=== PATIENT | male | born 1955 | race Caucasian/White ===

== ENCOUNTER 2019-06-16 19:37 | Observation (INO) | payer MEDICARE, SELFPAY ==
[2019-06-16] VITALS (10 sets, daily range): BP systolic 107–151; BP diastolic 77–93; PULSE 68–77; RESP 14–20; TEMP 36.6–36.7; O2SAT 98–100; BMI 26.4
--- NOTE | ~2019-06-16 | XR_ITS ---
EXAMINATION: XR chest 1V portable DATE: 06/16/2019 20:07 INDICATION: Syncope TECHNIQUE: AP view of the chest was obtained. COMPARISON: None FINDINGS: Small lung volumes. Calcified right apical pleural-parenchymal scarring. A few small scattered calcif ied pulmonary nodules consistent with old granulomatous disease. No other airspace opacities, pulmona ry edema, pleural effusion or pneumothorax. The cardiomediastinal silhouette is normal. Visualized dallin gia and soft tissues are unremarkable. IMPRESSION: 1. No acute cardiopulmonary disease. Reviewed, dictated and finalized at location A. NT ACQUISITION RELATIONSHIP MANAGER
--- NOTE | ~2019-06-16 | CT_ITS ---
EXAMINATION: CT brain wo con DATE: 06/16/2019 20:24 INDICATION: Syncope TECHNIQUE: Computed tomography (CT) of the head was performed without intravenous contrast. Sagittal and coronal reconstructions were performed. The mA was adjusted according to patient size. Iterative reconstruction technique was employed. The dose-length product was 605.33 mGy-cm. COMPARISON: None FINDINGS: No acute intracranial hemorrhage, acute infarction or abnormal extra axial fluid collection. There is minimal scattered white matter hypoattenuation consistent with chronic small vessel ischemic disease . Symmetric mildly increased prominence of the sulci consistent with minimal age-appropriate diffuse cerebral volume loss. Ventricles are normal and symmetric. No mass/mass effect. The orbits, paranasa l sinuses and mastoid air cells are normal. Intracranial calcified cerebral atherosclerosis is noted. IMPRESSION: 1. Normal aging brain. No acute intracranial process. Reviewed, dictated and finalized at location A. ET ENGINEER
--- NOTE | ~2019-06-16 | US_ITS ---
EXAMINATION: US carotid duplex BI DATE: 06/17/2019 09:34 INDICATION: Syncope. TECHNIQUE: Grayscale, color Doppler, and pulsed Doppler images of the cervical carotid arteries were obtained. The degree of vessel stenosis is placed in one of the following categories: normal, <50%, 5 0-69%, >=70% but less than near-occlusion, near-occlusion, or total occlusion. Note that percent sten osis relative to normal distal artery lumen diameter is indirectly measured from velocity measurement s as described by Gilson, et al. Radiology 2003; 229:340-346. COMPARISON: None. FINDINGS: RIGHT: The right common carotid artery (CCA) peak systolic velocity (PSV) is 73 cm/s. The right internal car otid artery (ICA) PSV is 128 cm/s. The right ICA end-diastolic velocity (EDV) is 49 cm/s. The right I CA/CCA PSV ratio is 1.8. Grayscale and color Doppler images yield an estimate of <50% diameter reduct ion from plaque in the ICA. There is antegrade flow in the right vertebral artery. LEFT: The left CCA PSV is 83 cm/s. The left ICA PSV is 90 cm/s. The left ICA EDV is 40 cm/s. The left ICA/C CA PSV ratio is 1.1. Grayscale and color Doppler images yield an estimate of <50% diameter reduction from plaque in the ICA. There is antegrade flow in the left vertebral artery. IMPRESSION: 1. <50% stenosis in the right internal carotid artery. 2. <50% stenosis in the left internal carotid artery. Reviewed, dictated and finalized at location A. RACTOR BROOMCORN THRESHING
--- NOTE | 2019-06-16 19:40 | ECG_ITS ---
Measurements Intervals [place] Rate: 70 P: 44 SD: 153 QRS: 2 QRSD: 99 T: 52 QT: 423 QTc: 458 Interpretive Statements SINUS RHYTHM VENTRICULAR PREMATURE COMPLEXES INCOMPLETE RIGHT BUNDLE BRANCH BLOCK BASELINE WANDER- AVL, AVF BORDERLINE ECG Electronically Signed On 06-17-2019 7:21:40 RESPIRATORY SCIENTIST by Dante Gorman D.O.
--- NOTE | 2019-06-16 19:40 | ED.SYNCOPE ---
HPI - Syncope General Chief Complaint: Syncope Stated Complaint: syncope Time Seen by Provider: 06/16/19 19:38 Source: patient, family (pt's ), EMS and RN notes reviewed Mode of arrival: EMS Limitations: no limitations History of Present Illness HPI narrative: Pt is a 63 y/o male who presents to the ED via EMS with c/o syncopal episode happening this evening. He notes that he had drank several beers throughout this afternoon. Pt states that he was eating chili this evening when he suddenly became lightheaded and diaphoretic and passed out. His notes that his head was slumped forward during the episode, and states that he was unconscious for roughly 7 minutes. She denies him having any convulsions or other seizure-like activity. EMS reports the pt having urinary incontinence during the episode. Pt denies any head injury, CP, SOB, or other symptoms. MD complaint: loss of consciousness Duration of episode: 7 -: minutes(s) Prodromal symptoms: lightheaded and diaphoresis Witnessed: Yes - by Other (pt's ) Context: other (while eating) Injuries sustained associated with event: none Current symptoms: other (urinary incontinence (per EMS)) Related Data Home Medications Medication Instructions Recorded Confirmed No Home Medications 06/16/19 06/16/19 Allergies Allergy/AdvReac Type Severity Reaction Status Date / Time No Known Allergies Allergy Verified 06/16/19 19:49 Review of Systems Review of Systems: All systems reviewed & are unremarkable except as noted in HPI and below Cardiovascular: Cardiovascular: Denies chest pain and Reports diaphoresis (resolved) Respiratory: Respiratory: Denies dyspnea Genitourinary: Genitourinary: Reports urinary incontinence (per EMS) Neurologic: Reports syncope, Denies seizure-like activity and Reports other (Reports: lightheadedness (resolved). Denies: head injury) [facility] Past Medical History Medical History Inguinal hernia Surgical History Surgical History Hx of appendectomy Family History Family History (Updated 06/16/19 @ 22:32 by Blaire Spann RN) Father Prostate carcinoma Sibling Multiple sclerosis Other Family history of cardiovascular disease Family history of malignant neoplasm Social History Social History Smoking status: Never smoker Alcohol intake: current Drinks per week: 4 Substance use: never Gender identity (if verbalized by the patient): Male Spiritual care concerns: No Agree to blood products: Yes Exam Narrative: Exam Narrative: APPEARANCE: No acute distress, nontoxic, resting in bed EYES: EOMI HEENT: Normocephalic, atraumatic, OMM RESPIRATORY: No respiratory distress Clear to auscultation bilaterally with no rhonchi wheezing or rales. CARDIOVASCULAR: Regular rate and rhythm without murmurs rubs or gallops. ABDOMINAL: Soft, nontender, nondistended, no rebound or guarding MUSCULOSKELETAl: Moves all extremities. No clubbing, cyanosis or edema. NEURO: Awake and alert x 3. Following commands, speech normal, no focal deficits SKIN:: Warm, dry. No rashes lesions or abrasions PSYCHIATRIC: Normal affect/mood, Course Course Emergency Course: Dr. Berman presentation work-up. Agrees with admission at this time Discussed with patient and family results of workup and diagnosis. Discussed need for admission. Patient and family understand and agree to current treatment plan Vital Signs Vital signs: Vital Signs Temperature 97.9 F 06/16/19 19:37 Pulse Rate 71 06/16/19 19:37 Respiratory Rate 14 06/16/19 19:37 Blood Pressure 140/81 06/16/19 19:37 Pulse Oximetry 100 06/16/19 19:37 Temperature 98.0 F 06/16/19 22:15 Pulse Rate 75 06/16/19 22:15 Respiratory Rate 16 06/16/19 22:15 Blood Pressure 133/88 06/16/19 22:15 Pulse Oximetry 100 06/16/19
[2019-06-16] MEDS: LACTATED RINGERS 1,000 ML 999 ML IV CONT (19:55)
[2019-06-16 20:04] LABS: Basophils Percent Auto 0.4 % (0.2-1.2); Eosinophils Absolute Auto 0.1 K/mm3 (0-0.3); Eosinophils Percent Auto 1.1 % (0-4.4); Hematocrit 42.8 % (42.0-52.0); Hemoglobin 14.2 g/dL (14.0-18.0); Immature Granulocyte Absolute 0.01 K/mm3 (0.00-0.031); Immature Granulocyte Percent A 0.1 % (0-0.5); Lymphocytes Absolute Auto 1.96 K/mm3 (0.9-3.2); Lymphocytes Percent Auto 23.7 % (18.3-44.2); Mean Corpuscular HGB Conc 33.2 g/dl (32-36); Mean Corpuscular Hemoglobin 29.8 pg (26-34); Mean Corpuscular Volume 89.7 fl (80-100); Mean Platelet Volume 10.8 fl (7.4-10.4); Monocytes Absolute Auto 0.5 K/mm3 (0.1-0.6); Monocytes Percent Auto 6.4 % (2.6-8.5); Neutrophils Absolute Auto 5.7 K/mm3 (1.3-6.7); Neutrophils Percent Auto 68.3 % (45.5-73.1); Platelet Count Result 210 k/mm3 (150-375); Red Blood Count 4.77 M/mm3 (4.6-6.20); Red Cell Distribution Width 13.1 % (11.5-14.5); White Blood Count 8.3 K/mm3 (4.5-10.0)
[2019-06-16 20:14] LABS: Prothrombin Time 12.5 Seconds (11.1-14.7)
[2019-06-16 20:16] LABS: Ethanol 18 mg/dL (<10)
[2019-06-16 20:18] LABS: Alanine Aminotransferase 17 U/L (4-50); Albumin Level 4.5 g/dL (3.5-5.1); Alkaline Phosphatase 49 U/L (38-126); Aspartate Amino Transferase 23 U/L (17-59); Bilirubin,Total 0.7 mg/dL (0.2-1.3); Blood Urea Nitrogen 15 mg/dL (9-20); Calcium 9.3 mg/dL (8.4-10.2); Carbon Dioxide 28 mmol/L (22-30); Chloride 98 mmol/L (98-107); Estimated Glomerular Filt Rate > 60; Glucose 93 mg/dL (75-110); Potassium 4.1 mmol/L (3.4-5.0); Sodium 139 mmol/L (137-145)
[2019-06-16 20:20] LABS: Add Urine Microscopic? YES; Appearance Urine Clear (Clear); Bacteria Urine Trace /hpf; Bilirubin Urine Negative (Negative); Blood Urine Negative (Negative); Color Urine Yellow (Yellow); Glucose Urine UA Negative (Negative); Hyaline Casts Urine 20-29 /lpf; Ketones Urine Negative (Negative); Leukocyte Esterase Ur Negative LEU/UL (Negative); Mucus Urine Few /lpf; Nitrate Urine Negative (Negative); Protein Urine 1+ mg/dL (Negative); RBC Urine 0-2 /hpf (0-2); Specific Grav Ur 1.023 (1.001-1.035); Urobilinogen Urine Negative mg/dL (<2.0)
[2019-06-16 20:30] LABS: Troponin I < 0.012 ng/mL (0.000-0.034)
--- NOTE | 2019-06-16 21:57 | PM.IMHP ---
H&P: HPI History of Present Illness Chief complaint: passed out tonight at dinner+ Narrative: This is a pleasant 63 year old male with no known medical problems who presented to the hospital [facility] with a history of passing out while at dinner tonight at a friend's house. The patient had just finished eating a bowel of chili and had gotten up and put his dish in the sink, he sat back down and his started to talk to him but didn't realize that he wasn't conscious. The patient had slumped over and was not responsive. His immediately noticed that he was unconscious and they called 911. He was laid on the ground and it took approximately 9 minutes until he woke up. His states that he lost urine but did not bite his tongue. He did not have any seizure like activity during the episode. When he woke up he was not confused or disoriented. He denies any chest pain or shortness of breath before passing out. This is the first time he has ever passed out. He denies any other recent symptoms including chest pain, palpitations, fevers, coughing, ear pain, shortness of breath, sorre throat, abdominal pain, nausea, vomiting, diarrhea, dysuria, hematuria, or rectal bleeding. He denies any numbness, tingling, focal weakness or visual disturbances. His denies noticing any facial droop or slurred speech. Review of Systems Review of Systems: All systems reviewed & are unremarkable except as noted in HPI and below PMFSH Past Medical History Medical History Inguinal hernia Surgical History Surgical History Hx of appendectomy Family History Family History (Updated 06/16/19 @ 22:32 by Blaire Spann RN) Father Prostate carcinoma Sibling Multiple sclerosis Other Family history of cardiovascular disease Family history of malignant neoplasm Social History Social History Smoking status: Never smoker Alcohol intake: current Drinks per week: 4 Substance use: never Gender identity (if verbalized by the patient): Male Spiritual care concerns: No Agree to blood products: Yes Meds Home Medications and Allergies Home Medications Medication Instructions Recorded Confirmed Type No Home Medications 06/16/19 06/16/19 History Allergies Allergy/AdvReac Type Severity Reaction Status Date / Time No Known Allergies Allergy Verified 06/16/19 19:49 Vital Signs Vital Signs - 24 hr 06/16/19 19:37 06/16/19 19:42 06/16/19 19:51 Temperature 36.6 C Pulse Rate 71 68 69 Respiratory Rate 14 Blood Pressure 140/81 120/85 Pulse Oximetry 100 06/16/19 19:52 06/16/19 19:53 06/16/19 20:21 Temperature Pulse Rate 76 74 68 Respiratory Rate 18 Blood Pressure 139/92 H 147/84 H 144/77 H Pulse Oximetry 98 06/16/19 20:56 Temperature Pulse Rate 77 Respiratory Rate 20 Blood Pressure 107/89 Pulse Oximetry 100 Exam Const: General: cooperative, healthy appearing, no acute distress, alert and awake Nutritional Appearance: well nourished Orientation/consciousness: patient oriented x3 HENMT: Head: normal to inspection General nose exam: Normal external nose present Face and sinus: normal facial exam Mouth: Yes Normal oral and palatal mucosa present and Yes oropharynx normal Eyes: Pupils: Equal, round and reactive pupils present EOM: EOMs intact bilaterally Neck: Neck: supple and no JVD Thyroid: thyroid normal Lymphatic: lymphadenopathy not noted Resp: Effort & Inspection: normal respiratory effort Auscultation: clear to auscultation bilaterally Cardio: Rate: regular rate Rhythm: regular rhythm Heart sounds: no murmurs GI: Inspection: normal to inspection Auscultation: normal bowel sounds Skin: General skin exam: normal color and no rashes or lesions noted Neuro: General: patient oriented x3 Cranial nerves:
--- NOTE | 2019-06-16 22:29 | ADMGEN ---
This patient, Lorenzo Rodriguez, was admitted to [facility] Surg Room [id number]. Patient/family oriented to hospital policies and general routines including ID bracelet, bed and alarms, visiting hours, pain management, procedures, bathroom and other care routines, personal items, smoking policy, room service/diet, and visiting hours. Valuables list has been completed. Information on how to activate the Rapid Response Team has been discussed. Patient/Family are encouraged to report perceived risks to care and to ask questions if they do not understand what they are told or what they should do.
[2019-06-16] MEDS: SODIUM CHLORIDE 0.9% IV 250 ML 100 ML IV CONT (23:01)
[2019-06-17] VITALS (9 sets, daily range): BP systolic 119–126; BP diastolic 61–78; PULSE 57–70; RESP 16–18; TEMP 36.6–36.9; O2SAT 96–97
[2019-06-17 01:13] LABS: Troponin I < 0.012 ng/mL (0.000-0.034)
[2019-06-17 03:15] LABS: Basophils Percent Auto 0.5 % (0.2-1.2); Eosinophils Absolute Auto 0.1 K/mm3 (0-0.3); Eosinophils Percent Auto 1.2 % (0-4.4); Hematocrit 38.6 % (42.0-52.0); Hemoglobin 12.7 g/dL (14.0-18.0); Immature Granulocyte Absolute 0.01 K/mm3 (0.00-0.031); Immature Granulocyte Percent A 0.2 % (0-0.5); Lymphocytes Absolute Auto 2.29 K/mm3 (0.9-3.2); Lymphocytes Percent Auto 35.7 % (18.3-44.2); Mean Corpuscular HGB Conc 32.9 g/dl (32-36); Mean Corpuscular Hemoglobin 29.5 pg (26-34); Mean Corpuscular Volume 89.8 fl (80-100); Mean Platelet Volume 11.1 fl (7.4-10.4); Monocytes Absolute Auto 0.6 K/mm3 (0.1-0.6); Monocytes Percent Auto 9.2 % (2.6-8.5); Neutrophils Absolute Auto 3.4 K/mm3 (1.3-6.7); Neutrophils Percent Auto 53.2 % (45.5-73.1); Platelet Count Result 189 k/mm3 (150-375); Red Cell Distribution Width 13.2 % (11.5-14.5); White Blood Count 6.4 K/mm3 (4.5-10.0)
[2019-06-17 03:28] LABS: Blood Urea Nitrogen 15 mg/dL (9-20); Calcium 8.7 mg/dL (8.4-10.2); Carbon Dioxide 24 mmol/L (22-30); Chloride 102 mmol/L (98-107); Estimated CRCL calculation 72 ml/min; Estimated Glomerular Filt Rate > 60; Glucose 93 mg/dL (75-110); Sodium 137 mmol/L (137-145)
[2019-06-17 03:39] LABS: Troponin I < 0.012 ng/mL (0.000-0.034)
--- NOTE | 2019-06-17 10:59 | PM.IMPN ---
Progress Note: A&P Assessment and Plan (1) Syncope: Qualifiers: Syncope type: unspecified Qualified Code(s): R55 - Syncope and collapse Code(s): R55 - Syncope and collapse Status: Acute Assessment and Plan: Rule out cardiogenic syncope vs. vasovagal. Carotid doppler unremarkable today. Telemetry shows sinus rhythm; occasional PVCs; bradycardia overnight into high 40s; no other ectopy; asymptomatic. TSH WNL Fall precautions Given no clear etiology will observe again overnight and await Echocardiogram to be done tomorrow Likely need media monitor at home; either follow up with PCP for this or discharge from here with monitor; will reassess tomorrow Continue to monitor Additional Plan Subjective Date/time seen: 06/17/19 10:59 Interval history: Patient is a 63 yo M with no known medical problems who is here for evaluation for a syncopal episode. Patient tells me his symptoms have been resolved since the syncopal event last night. He notes feeling hot and sweaty prior to the event and shortly after the event. Besides loss of bladder control, he had no other signs of seizure activity or signs of stroke. No recent infection. No new stressors at home. This has never happened before. He doesn't believe he has been dehydrated. Otherwise no complaints. Today, denies f/c/ns, headaches, dizziness, lightheadedness, changes in v/h, cp/palpitations, sob, n/v/d/c, abd pain, dysphagia, melena, brbpr, dysuria, hematuria, cloudy urine, calf pain/swelling, s/sx of stroke. Review of Systems Review of Systems: All systems reviewed & are unremarkable except as noted in HPI and below Exam Narrative: Exam Narrative: Patient sitting upright in bed at time of visit. is at bedside visiting Const: General: cooperative, healthy appearing, comfortable, no acute distress, well developed, alert and awake Nutritional Appearance: well nourished Orientation/consciousness: patient oriented x3 HENMT: Head: normocephalic and atraumatic Ears: external ears normal General nose exam: Normal nares present Face and sinus: face symmetric Mouth: Yes Normal oral and palatal mucosa present, Yes tongue normal, Yes oropharynx normal and Yes moist mucous membranes Teeth and gingiva: dentition normal Throat: posterior oropharynx normal and uvula midline Eyes: General: appearance normal, both eyes and all related structures Sclera: sclerae normal Pupils: Equal, round and reactive pupils present EOM: EOMs intact bilaterally Neck: Neck: trachea midline, supple and no JVD Resp: Effort & Inspection: normal respiratory effort Auscultation: clear to auscultation bilaterally Cardio: Rate: regular rate Rhythm: regular rhythm Heart sounds: no murmurs GI: GI Palp: No abdominal tenderness and Yes Soft to palpation Auscultation: normal bowel sounds and normoactive bowel sounds Skin: General skin exam: normal color and no rashes or lesions noted Neuro: General: patient oriented x3 Cranial nerves: Yes CN's II-XII intact bilaterally and Yes Equal, round and reactive pupils present Speech: normal speech Motor exam (neuro): 5/5 motor strength present throughout Sensory Exam: normal sensation Extrem: General: normal to inspection Right lower extremity: no edema Left lower extremity: no edema Psych: Mental Status: mental status grossly normal Affect: normal affect Objective Data Vital Signs Vital Signs: Vital Signs - 24 hr 06/16/19 19:37 06/16/19 19:42 06/16/19 19:51 Temperature 97.9 F Pulse Rate 71 68 69 Respiratory Rate 14 Blood Pressure 140/81 120/85 Pulse Oximetry 100 06/16/19 19:52 06/16/19 19:53 06/16/19 20:21 Temperature Pulse Rate 76 74 68 Respiratory Rate 18 Blood Pressure 139/92 H 147/84 H 144/77 H Pulse Oximetry 98 06/16/19 20:56 06/16/19 21:59 06/16/19 22:00 Temperature 98.0 F Pulse Rate 77 70 74 Respiratory Rate 20 14 19 Blood Pressur
[2019-06-18] VITALS: PULSE 58
--- NOTE | 2019-06-18 | ECHO_ITS ---
Patient Info Name: Lorenzo Rodriguez Age: 63 years : 1955 Gender: Male Ht: 69 in Wt: 178 lbs BSA: 2.00 m2 HR: 64 bpm BP: 125 / 69 mmHg Heart Rhythm: Sinus Rhythm Technical Quality: Good Exam Date: 06/18/2019 3:11 PM Exam Location: [facility] Pulmonary Patient Status: Inpatient Admit Date: 06/16/2019 Staff Ordering Physician: Lorenzo Wesley MD Internship Coordinator: Supriya Grant RDCS Attending Provider: Ti Resendiz PA-C Referring Physician: Lupillo NORTON; Exam Type: CA echo doppler color flow Study Info Indications R55 - Syncope and collapse Complete two-dimensional, color flow and Doppler transthoracic echocardiogram is performed. Summary 1. Left ventricular chamber dimension is normal. 2. Left ventricular systolic function is normal, estimated at 65-70%. 3. Trivial amounts of both mitral and tricuspid valve insufficiency are noted. Left Ventricle Left ventricular chamber dimension is normal. Left ventricular systolic function is normal, estimated at 65-70%. The left ventricular diastolic function is normal. Right Ventricle Right ventricular chamber dimension is normal. Left Atria Left atrial chamber dimension is normal. Right Atria Right atrial chamber dimension is normal. Aortic Valve The aortic valve is trileaflet. There is mild aortic valve sclerosis. Pulmonic Valve The pulmonic valve is normal. Mitral Valve The mitral valve has normal leaflets. There is trace mitral valve regurgitation. Tricuspid Valve The tricuspid valve leaflets are normal. There is trace tricuspid valve regurgitation. Pericardium/Pleural The pericardium appears normal. Aorta The aortic root size at the sinus of Valsalva is normal. Left Ventricular Outflow Tract Name Value Normal LVOT 2D LVOT Diameter 2.0 cm LVOT Doppler LVOT Peak Velocity 104 cm/s LVOT Peak Gradient 4 mmHg LVOT Mean Gradient 2 mmHg LVOT VTI 22 cm LVOT VTI/AV VTI Ratio 0.9 LVOT Stroke Volume 68 ml LVOT CO 4.2 l/min LVOT CI 2.1 l/min/m2 Pulmonic Valve Name Value Normal RVOT Doppler RVOT Peak Gradient 3 mmHg PV Doppler PV Peak Velocity 110 cm/s PV Peak Gradient 5 mmHg Mitral Valve Name Value Normal MV Doppler MV [place] [place]
[2019-06-18 04:00] VITALS: PULSE 50
[2019-06-18 06:00] VITALS: BP 125/69; PULSE 55; RESP 16; TEMP 36.6; O2SAT 98
[2019-06-18 08:00] VITALS: PULSE 64; O2SAT 98
[2019-06-18 12:00] VITALS: PULSE 67
--- NOTE | 2019-06-18 13:43 | PCCCNOTE ---
On 06/18/19, the student, [ Inez Echavarria], provided care and completed [facility] documentation on this patient. I have reviewed the student's documentation and agree with the findings.
[2019-06-18 14:32] VITALS: BP 136/88; PULSE 69; RESP 18; TEMP 37.1; O2SAT 98
--- NOTE | 2019-06-18 16:21 | PM.DS ---
DS: Diagnosis Admitting Diagnosis Admitting Diagnosis: Syncope and collapse Discharge Diagnosis (1) Syncope: Qualifiers: Syncope type: unspecified Qualified Code(s): R55 - Syncope and collapse Code(s): R55 - Syncope and collapse Status: Acute Assessment and Plan: Likely vasovagal at this point; possibly orthostatic, although these were negative at presentation; also possibly dysrhythmia although telemetry grossly unremarkable during stay. Carotid doppler unremarkable; Echo grossly unremarkable. Telemetry shows sinus rhythm; occasional PVCs; bradycardia overnight into high 40s; no other ectopy; asymptomatic. TSH WNL Will recommend patient follow up with PCP to potentially be placed with a manager cardiac while at home Discharge home today DS: Summary Hospital Course Reason for hospitalization: Syncope Hospital Course: Patient is a 63 yo male with no known medical problems who presented to the hospital on with complaints of syncope. He was at dinner at a friend's house when he just finished eating a bowl of chili and gotten up to put his dish in the sink, sat back down, and then was noted to be unconscious by his and friends. called EMS and laid patient down on the floor. He was reported to have shallow breaths and a weak pulse, but no CPR was initiated. His believes he was unconscious for roughly 9 minutes while on the phone with 911. He lost bladder control; no mouth trauma or signs of tonic/clonic seizure activity. Patient then regained consciousness and was not confused/disoriented. No SOB/CP. No prior episodes. Please see H&P for further details Presenting VS: BP 140/81, HR 71, RR 14, temp 97.9, sat 100% RA Presenting Pertinent labs: TSH 4.770, then 2.430 on 06/16. Troponins negative x 3. Ethyl alcohol 18. CBC, CMP, coags, UA otherwise unremarkable Micro: none Imagin/29 CXR IMPRESSION: 1. No acute cardiopulmonary disease. Head CT IMPRESSION: 1. Normal aging brain. No acute intracranial process. 06/16 Carotid Doppler IMPRESSION: 1. <50% stenosis in the right internal carotid artery. 2. <50% stenosis in the left internal carotid artery. 06/17 Echo Summary 1. Left ventricular chamber dimension is normal. 2. Left ventricular systolic function is normal, estimated at 65-70%. 3. Trivial amounts of both mitral and tricuspid valve insufficiency are noted. ECG: Interpretive Statements SINUS RHYTHM VENTRICULAR PREMATURE COMPLEXES INCOMPLETE RIGHT BUNDLE BRANCH BLOCK BASELINE WANDER- AVL, AVF BORDERLINE ECG Patient was admitted to the hospitalist service for further evaluation and observation. While in the ED, patient was found not to be orthostatic; he was also given IVF in the ED for possible dehydration. During stay, work up with grossly unremarkable and telemetry showed predominantly sinus rhythm with occasional PVCs; some bradycardia overnight with rate into the high 40s. Patient's stay was unremarkable without additional syncopal episodes and after Echo was performed on 06/17 without any significant abnormalities, patient was instructed to follow up with PCP for possibly being fit for a 30 day event monitor for further work up. It was felt at time of discharge that this may be vasovagal in nature, although the down time seemed to be quit long for a vasovagal episode. Patient was hemodynamically stable and in okay condition for discharge on 06/17. Patient and were agreeable and comfortable with plan for discharge. Status at Discharge Overall status at discharge: patient is back to baseline Time Spent with Patient Time attestation: Total time spent providing and/or coordinating discharge services: 40 minutes Time spent: Greater than 30 minutes Exam Narrative: Exam Narrative: Patient sitting upright in bed at time of visit. is at bedside visiting Const: General: cooperative, healthy appearing, comfortable, no acute dist
== END 2019-06-18 17:15 | disposition home or self-care (01) ==
LOC: ANHED 21:09 → ANH3MEDSUR 21:18
PROVIDERS: Admitting Provider Family Medicine; Emergency Provider Emergency Medicine; PCP Family Medicine Adolescent Medicine; Visit Provider Hospitalist
DX: R55 Syncope and collapse (principal); R00.1 Bradycardia, unspecified; R32 Unspecified urinary incontinence
CPT/HCPCS: 36415; 70450; 71045; 80048; 80053; 80307; 81001; 83735; 84443; 84484; 85025; 85610; 85730; 93005; 93306; 93880; 96360; 96361; 99285; G0378; J7050; J7120

== ENCOUNTER 2019-06-27 09:50 | Outpatient (CLI) | payer MEDICARE, SELFPAY ==
--- NOTE | 2019-06-29 15:30 | WPDHOLTEREM ---
Holter/Event Monitor Holter/Event Monitor Date of procedure: 06/27/19 Procedure Type: 48 hour holter monitor Indications: Syncope Conclusion: 1. 48 hour holter monitor on 06/27/19. 2. Underlying rhythm is sinus rhythm. HR range 39-100 bpm; average HR 62 bpm. 3. There are 325 premature supraventricular complexes, 17 supraventricular couplets, and 1 supraventricular triplet. No supraventricular tachycardia. 4. There are 6,341 premature ventricular complexes, 7 ventricular couplets, 75 ventricular bigeminy and 83 ventricular trigeminy. No ventricular tachycardia. 5. No sinoatrial or atrioventricular blocks. No significant pauses greater than 2 seconds. 6. No symptoms available for correlation.
== END 2019-06-27 09:51 | disposition home or self-care (01) ==
PROVIDERS: PCP Family Medicine Adolescent Medicine; Visit Provider Family Medicine Adolescent Medicine
DX: R55 Syncope and collapse (principal)
CPT/HCPCS: 93225; 93226

== ENCOUNTER 2022-01-22 07:22 | Outpatient (CLI) | payer MEDICARE, SELFPAY ==
[2022-01-22 08:01] LABS: Alanine Aminotransferase 32 U/L (16-63); Alkaline Phosphatase 61 U/L (46-116); Anion Gap 6 mmol/L (8-16); Aspartate Amino Transferase 19 U/L (15-37); Bilirubin,Total 1.2 mg/dL (0.00-1.00); Blood Urea Nitrogen 12 mg/dL (7-18); Calcium 9.1 mg/dL (8.5-10.1); Carbon Dioxide 31 mmol/L (21-32); Chloride 103 mmol/L (98-108); Cholesterol 250 mg/dL (0-200); Estimated Glomerular Filt Rate > 60; Glucose 98 mg/dL (70-99); HDL Direct 58 mg/dL (40-60); LDL Cholesterol Calculated 176 mg/dL (<130); Osmolality Calculated 289 mOsm/kg (285-295); Potassium 4.1 mmol/L (3.5-5.1); Prostate Specific Antigen 9.5 ng/mL (< OR = 4.0); Sodium 140 mmol/L (136-145); Total Protein 7.7 g/dL (6.4-8.2); Triglycerides 79 mg/dL (0-150)
== END 2022-01-22 07:23 | disposition home or self-care (01) ==
PROVIDERS: PCP Family Medicine Adolescent Medicine; Visit Provider Family Medicine Adolescent Medicine
DX: Z13.220 Encounter for screening for lipoid disorders (principal); Z12.5 Encounter for screening for malignant neoplasm of prostate; Z13.6 Encounter for screening for cardiovascular disorders
CPT/HCPCS: 36415; 80053; 80061; 84153; G0103

== ENCOUNTER 2022-02-12 07:31 | Outpatient (CLI) | payer MEDICARE, SELFPAY ==
[2022-02-12 08:43] LABS: Prostate Specific Antigen 8.2 ng/mL (< OR = 4.0)
== END 2022-02-12 07:32 | disposition home or self-care (01) ==
LOC: CHSLAB 07:34
PROVIDERS: PCP Family Medicine Adolescent Medicine; Visit Provider Urology
DX: R97.20 Elevated prostate specific antigen [PSA] (principal)
CPT/HCPCS: 36415; 84153

== ENCOUNTER 2022-06-29 11:49 | Outpatient (CLI) | payer MEDICARE, SELFPAY ==
--- NOTE | 2022-06-29 12:41 | ECG_ITS ---
Measurements Intervals Jackson Rate: 51 P: 51 IL: 166 QRS: -11 QRSD: 93 T: 10 QT: 439 QTc: 406 Interpretive Statements SINUS BRADYCARDIA CANNOT RULE OUT SEPTAL INFARCT, AGE INDETERMINATE BASELINE ARTIFACT- I, III, AVR, AVL, AVF ABNORMAL ECG COMPARED TO ECG 06/16/2019 19:41:48 SINUS BRADYCARDIA NOW PRESENT Electronically Signed On 06-29-2022 12:56:37 CDT by Dante Gorman D.O.
[2022-06-29 13:41] LABS: Basophils Percent Auto 0.6 % (0.2-1.2); Eosinophils Absolute Auto 0.6 K/mm3 (0-0.3); Eosinophils Percent Auto 9.3 % (0-4.4); Hematocrit 44.6 % (42.0-52.0); Immature Granulocyte Absolute 0.01 K/mm3 (0.00-0.031); Immature Granulocyte Percent A 0.2 % (0-0.5); Lymphocytes Absolute Auto 1.61 K/mm3 (0.9-3.2); Lymphocytes Percent Auto 26.1 % (18.3-44.2); Mean Corpuscular HGB Conc 33.6 g/dl (32-36); Mean Corpuscular Volume 89.2 fl (80-100); Mean Platelet Volume 10.6 fl (7.4-10.4); Monocytes Absolute Auto 0.5 K/mm3 (0.1-0.6); Monocytes Percent Auto 8.3 % (2.6-8.5); Neutrophils Absolute Auto 3.4 K/mm3 (1.3-6.7); Neutrophils Percent Auto 55.5 % (45.5-73.1); Platelet Count Result 213 k/mm3 (150-375); Red Cell Distribution Width 13.6 % (11.5-14.5); White Blood Count 6.2 K/mm3 (4.5-10.0)
[2022-06-29 13:54] LABS: INR 1.1; Partial Thromboplastin Time 28.3 SECONDS (22.3-36.8); Prothrombin Time 13.4 Seconds (11.1-14.7)
[2022-06-29 14:13] LABS: Alanine Aminotransferase 50 U/L (6-50); Albumin Level 4.5 g/dL (3.5-5.1); Alkaline Phosphatase 57 U/L (38-126); Anion Gap 4 mmol/L (8-16); Aspartate Amino Transferase 35 U/L (17-59); Bilirubin,Total 1.3 mg/dL (0.2-1.3); Blood Urea Nitrogen 14 mg/dL (9-20); Calcium 9.3 mg/dL (8.4-10.2); Carbon Dioxide 31 mmol/L (22-30); Chloride 104 mmol/L (98-107); Estimated Glomerular Filt Rate > 60; Glucose 93 mg/dL (65-110); Potassium 4.5 mmol/L (3.4-5.0); Sodium 139 mmol/L (137-145)
== END 2022-06-29 11:50 | disposition home or self-care (01) ==
LOC: ANHSURGERY 11:54
PROVIDERS: PCP Family Medicine Adolescent Medicine; Visit Provider Urology
DX: C61 Malignant neoplasm of prostate (principal); Z01.818 Encounter for other preprocedural examination
CPT/HCPCS: 36415; 80053; 85025; 85610; 85730; 86850; 86900; 86901; 87086; 93005

== ENCOUNTER 2022-07-06 01:05 | Day surgery (SDC) | payer MEDICARE, SELFPAY ==
--- NOTE | 2022-06-29 11:16 | PC.NURSE ---
PRE-OP INSTRUCTIONS - PLEASE READ CAREFULLY Report to the Outpatient Waiting Room, entrance under the green pavilion located off [facility], at time _0600_ on date _07/06/22_. Planned Procedure Time: _0730_. PACK A SMALL OVERNIGHT BAG AND LEAVE IN THE CAR Time changes happen often and if your time is changed the preop area will call you the afternoon before. - You and your visitor will be asked to self-screen and do not enter if you have any COVID symptoms. - Only one visitor is requested with a max of two and NO children visitors are allowed at this time. - The patient visitor may be requested to leave or wait in car when not with patient due to distancing restrictions. - A mask is optional within the hospital at this time. -VISITING HOURS 8AM-APM Patients may have clear liquids (water, carbonated beverages, clear teas, apple juice) until 3 hours prior to surgery (0430 AM) with a maximum of 20 ounces. - No food from midnight until time of surgery Take the following medications with a SIP of water the morning of surgery: NONE DO NOT STOP ANY OF YOUR OTHER PRESCRIPTION MEDICATIONS PRIOR TO SURGERY ?EXCEPT THE FOLLOWING Medications to discontinue per physician NONE Date to take last dose Please no make-up, nail belarusian, hairspray, perfume, deodorant, or body powder the day of surgery. No jewelry (including any body piercings) or valuables the day of surgery, leave them at home. Please take a shower or bath the night before, or the morning of, surgery with an antibacterial soap. Wear comfortable, loose fitting clothing. - Jewelry must be removed prior to entering the operating room. Rings and piercings that are not removed may be cut off. - The hospital will not accept responsibility for valuables. - Please leave all valuables, including medications, at home the day of surgery. If you are going home after surgery, a licensed funeral driver must drive you home. - NO public transportation without another adult if you receive anesthesia. - We recommend that an adult stay with you for 24 hours following discharge. - We also recommend that you do not drive, make important decision, drink alcoholic beverages, or take any drugs that were not prescribed by your health care provider for at least 24 hours after your discharge time. Follow any additional instructions given to you from your surgeon. If you or anyone in your household have experienced Covid symptoms in the past week, please notify your surgeon or the nurse liaison at the phone number below for possible testing. Instructions given to _PATIENT_and asked if any additional questions and then verbalized understanding. Patient advised to call surgeon office or pre surgery nurse liaison [phone] if any additional questions.
[2022-06-29 12:03] VITALS: BP 182/88; PULSE 60; RESP 20; TEMP 36.8; O2SAT 100; BMI 25.0
[2022-07-06] VITALS (13 sets, daily range): BP systolic 106–161; BP diastolic 44–94; PULSE 62–83; RESP 11–22; TEMP 36.1–36.6; O2SAT 92–100
--- NOTE | 2022-07-06 06:50 | P.PNAN_ITS ---
Anes - Initial Pre Proc Eval Procedure: Operation Date: 07/06/22 07:30 Proposed Procedures p Robotic Assisted Nerve Sparing Prostatectomy, Possible Bilateral Pelvic Lymph Node Dissection - Artur Monroy MD Date/Time: 07/06/22 06:50 Surgeon: Artur Monroy MD Pre Op Diagnosis: prostate cancer Patient Data Age: 67 Gender: M Height: 1.75 m Weight: 76.7 kg Last Vital Signs Temp 36.8 C 06/29/22 12:03 Pulse 60 06/29/22 12:03 Resp 20 06/29/22 12:03 BP 182/88 H 06/29/22 12:03 Pulse Ox 100 06/29/22 12:03 O2 Del Method Room Air 06/29/22 12:03 Allergies Allergy/AdvReac Type Severity Reaction Status Date / Time No Known Allergies Allergy Verified 06/29/22 12:02 Home Medications Medication Instructions Recorded Confirmed Type atorvastatin 40 mg tablet 40 mg PO DAILY #90 tabs 01/22/22 06/29/22 Rx Patient hx anesthesia problems: none Family hx anesthesia problems: none Results Review: All pre-operative results and documents have been reviewed as part of the pre- operative evaluation. [facility] Past Medical History Medical History (Updated 07/06/22 @ 06:51 by Da Gómez MD) Inguinal hernia Prostate cancer Surgical History Surgical History Hx of appendectomy Family History Family History Father Prostate carcinoma Sibling Multiple sclerosis Other Family history of cardiovascular disease Family history of malignant neoplasm Social History Social History Smoking status: Never smoker Second hand tobacco smoke exposure: No Alcohol intake: current Drinks per week: 4 Substance use: never Substance use type: does not use Living arrangements: with family Gender identity (if verbalized by the patient): Male Spiritual care concerns: No Agree to blood products: Yes Anes - Eval Final PreProcedure Day of Procedure 07/06/22 06:50 Patient weight: normal Heart: regular rate and rhythm Lungs: clear to auscultation Airway: Mallampati scale class II Neurological: alert and oriented Last oral intake: >/= 8 hours ASA classification: III Emergent: no Anesthetic plan: proceed Anesthesia type and monitoring: general ETT and standard monitoring Results Review: All pre-operative results and documents have been reviewed as part of the pre- operative evaluation. Informed Consent: The patient's anesthetic plan and its attendant risks and benefits were discussed with the patient/family/POA. Questions were solicited and answers provided to the satisfaction of the patient/family/POA.
[2022-07-06] MEDS: LACTATED RINGERS 1,000 ML 30 ML IV CONT ×2 (07:00→11:21)
--- NOTE | 2022-07-06 07:08 | WPDHPUPDATE1 ---
History and Physical Update Update Date/Time: 07/06/22 07:08 History and Physical has been reviewed, including an updated exam of the patient. There are NO changes in the patient's condition. Risks, benefits, and alternatives have been discussed and questions answered. Patient agrees to proceed with procedure.
[2022-07-06] MEDS: ceFAZolin 2 GM/D5W 50 ML 2 GM/50 ML BAG IVPB (07:29)
[2022-07-06] MEDS: BUPivacaine HCL 0.5% PF 30 ML VIAL 20 ML INFILTRATE (08:37)
--- NOTE | 2022-07-06 11:13 | W.PM.PROC2 ---
Procedure Note - Detailed Date of Procedure 07/06/22 Pre-op Diagnosis prostate cancer Post-op Diagnosis Same Procedure Performed Robotic assisted nerve-sparing prostatectomy with left pelvic lymphadenectomy Surgeon Artur Monroy MD Anesthesia General Description of Procedure Patient is taken to the operative suite correctly identified. Once anesthesia was obtained he was placed in low-lying dorsal lithotomy position and prepped draped usual sterile fashion. Supraumbilical incision was made and carried down to the rectus fascia. Veress needle was inserted the abdomen was insufflated to 15 mmHg pressure. Camera port was then placed in direct vision. Appropriate working ports were then placed. Placed in was placed into Trendelenburg position and the robot was docked. At this point we turned the pressure down to 10 mm. There was adhesions of the sigmoid colon in the left cul-de-sac. We went ahead and freed this up. Posterior approach was then performed. Seminal vesicles were dissected out in their entirety. Vas were transected. Plane between the prostate and rectum was developed. Bladder was then taken down space of Retzius was developed bilaterally. Dorsal venous complex was isolated using an 0 Vicryl suture and secured to the pubic bone. Bladder neck sparing procedure was then performed. Posterior layer was incised and the seminal vesicles were viewed. Bilateral nerve-sparing was then performed. Pedicles were clipped. Dorsal venous complex was then transected and the urethra was visualized nicely and transected. Prostate was then freed from all of its attachments. Specimen was placed in Endo-Catch bag. Left pelvic lymph node dissection was then performed with the boundaries being the obturator nerve external iliac vein, Godfrey's ligament, and bifurcation of the vessels. Surgicel was placed in the obturator fossa. A Mook stitch was then placed. Bladder neck was reanastomosed to the urethral stump using V lock suture in a running fashion. There was good approximation of mucosa. Sixteen Persian Roberts was then placed with 10 cc in the balloon. Bladder was filled with 125 cc of saline. There was no evidence of extravasation at this time. Chapito drain was placed and secured. All lap count needle counts sponge counts were correct. The robot was undocked. Rectus fascia was closed using 0 Vicryl running fashion. Subcuticular stitches were placed. Skin was anesthetized using Marcaine. Patient was taken recovery stable condition. Case and a copy of op note to my office Estimated Blood Loss 50 Drains Yes Packing No Pathology Yes Complications No immediate complications Condition Stable Disposition PACU
[2022-07-06] MEDS: fentaNYL CITRATE INJ (*CRX) 100 MCG/2 ML VIAL 25 MCG IV PUSH ×5 (11:50→12:48)
--- NOTE | 2022-07-06 13:16 | ADMGEN ---
This patient, Lorenzo Rodriguez, was admitted to [facility] Surg Room 321-02. Patient/family oriented to hospital policies and general routines including ID bracelet, bed and alarms, visiting hours, pain management, procedures, bathroom and other care routines, personal items, smoking policy, room service/diet, and visiting hours. Information on how to activate the Rapid Response Team has been discussed. Patient/Family are encouraged to report perceived risks to care and to ask questions if they do not understand what they are told or what they should do.
[2022-07-06] MEDS: LACTATED RINGERS 1,000 ML 125 ML IV CONT ×2 (14:38→22:28)
[2022-07-06] MEDS: HYDROcodone/acetaminophen (*CRX) 5-325 MG TABLET 1 TAB PO ×2 (14:45→22:28)
[2022-07-06] MEDS: KETOROLAC 15 MG/ML VIAL (*BKC) IV PUSH (17:08)
[2022-07-06] MEDS: DOCUSATE SODIUM 100 MG CAPSULE PO (17:08)
[2022-07-06 21:59] LABS: Glucose Point of Care 98 mg/dl (65-105)
[2022-07-07 02:42] VITALS: BP 124/63; PULSE 57; RESP 18; TEMP 36.2; O2SAT 98
[2022-07-07] MEDS: HYDROcodone/acetaminophen (*CRX) 5-325 MG TABLET 1 TAB PO (04:50)
[2022-07-07 06:35] LABS: Hematocrit 37.7 % (42.0-52.0); Hemoglobin 12.8 g/dL (14.0-18.0)
[2022-07-07 06:42] VITALS: BP 134/66; PULSE 60; RESP 18; TEMP 36.2; O2SAT 98
[2022-07-07 06:56] LABS: Anion Gap 5 mmol/L (8-16); Blood Urea Nitrogen 13 mg/dL (9-20); Carbon Dioxide 27 mmol/L (22-30); Chloride 104 mmol/L (98-107); Estimated CRCL calculation 76 ml/min; Estimated Glomerular Filt Rate > 60; Glucose 91 mg/dL (65-110); Potassium 3.8 mmol/L (3.4-5.0); Sodium 136 mmol/L (137-145)
[2022-07-07] MEDS: ATORVASTATIN 40 MG TABLET PO (09:02)
[2022-07-07] MEDS: levoFLOXacin 500 MG TABLET PO (09:02)
[2022-07-07] MEDS: DOCUSATE SODIUM 100 MG CAPSULE PO (09:02)
[2022-07-07 09:49] VITALS: BP 145/76; PULSE 74; RESP 18; TEMP 36.2; O2SAT 98
--- NOTE | 2022-07-07 12:24 | WPDUROPN2 ---
Progress Note: A&P Assessment and Plan (1) Adenocarcinoma of prostate: Code(s): C61 - Malignant neoplasm of prostate Status: Acute Assessment and Plan: Doing well. Increase activity. Most likely discharge home today with perales. Subjective Subjective Date/Time Seen: 07/07/22 12:24 Post Op day: 1 (robotic assist nerve sparing prostatectomy with left plnd) Principal diagnosis: adenocarcinoma of prostate Interval history: Doing well at this time. No significant pain. Tonio with 80cc overnight. Review of Systems Review of Systems: All systems reviewed & are unremarkable except as noted in HPI and below Exam Const: General: cooperative and comfortable Chest: Chest palpation & inspection: normal inspection of the chest Resp: Effort & Inspection: normal respiratory effort Cardio: Rate: regular rate Rhythm: regular rhythm GI: Inspection: normal to inspection Urinary Catheter: Urinary Catheter: patent and draining and urine clear Objective Data Vital Signs Vital Signs: Vital Signs - 24 hr 07/06/22 12:37 07/06/22 12:52 07/06/22 13:15 Temperature 36.2 C L Pulse Rate 70 74 78 Respiratory Rate 17 22 H 18 Blood Pressure 161/94 H 154/83 H 154/87 H Pulse Oximetry 99 98 100 Oxygen Delivery Room Air Room Air 07/06/22 13:27 07/06/22 13:30 07/06/22 15:00 Temperature 36.2 C L 36.2 C L Pulse Rate 78 83 Respiratory Rate 18 18 Blood Pressure 152/89 H 144/84 H Pulse Oximetry 99 99 Oxygen Delivery Room Air 07/06/22 14:00 07/06/22 20:00 07/06/22 22:30 Temperature 36.3 C L 36.6 C Pulse Rate 77 69 Respiratory Rate 16 16 Blood Pressure 143/86 H 118/59 L Pulse Oximetry 99 100 Oxygen Delivery Room Air 07/07/22 02:42 07/07/22 06:42 07/07/22 09:49 Temperature 36.2 C L 36.2 C L 36.2 C L Pulse Rate 57 L 60 74 Respiratory Rate 18 18 18 Blood Pressure 124/63 134/66 145/76 H Pulse Oximetry 98 98 98 Oxygen Delivery 07/07/22 08:00 Temperature Pulse Rate Respiratory Rate Blood Pressure Pulse Oximetry Oxygen Delivery Room Air Intake/Output Intake/Output: Intake & Output 03/19/23 03/20/23 03/21/23 03/22/23 23:59 23:59 23:59 23:59 Intake Total 2480 515 Output Total 920 1290 Balance 1560 -775 Meds/Results Medications: Active Medications Generic Name Dose Route Start Last Admin Trade Name Freq PRN Reason Stop Dose Admin Hydrocodone Bitart/Acetaminophen 1 tab 07/06/22 12:57 07/07/22 04:50 Hydrocodone/Acetaminophen (*Crx) 5-325 Mg Tablet PO 1 tab Q6H PRN Administration Pain Rated 1-3 Atorvastatin Calcium 40 mg 07/07/22 09:00 07/07/22 09:02 Atorvastatin 40 Mg Tablet PO 40 mg DAILY ASHLEY Administration Docusate Sodium 100 mg 07/06/22 17:00 07/07/22 09:02 Docusate Sodium 100 Mg Capsule PO 100 mg BID ASHLEY Administration Hyoscyamine 0.125 mg 07/06/22 12:57 Hyoscyamine Sulfate 0.125 Mg Tablet SUBLINGUAL Q4H PRN Bladder Spasm Acetaminophen 650 mg in 65 mls @ 260 mls/hr 07/06/22 12:57 Ofirmev 650 Mg Ivpb IVPB 07/07/22 12:56 Q4H PRN Pain Rated 4-6 Lactated Ringer's 1,000 mls @ 125 mls/hr 07/06/22 12:57 07/06/22 22:28 Lr - Lactated Ringers Iv IV CONT 125 mls/hr .Q8H ASHLEY Administration Ketorolac Tromethamine 15 mg 07/06/22 12:57 07/06/22 17:08 Ketorolac 15 Mg/Ml Vial (*Bkc) IV PUSH 07/07/22 12:56 15 mg Q6H PRN Administration Pain Rated 4-6 Levofloxacin 500 mg 07/07/22 09:00 07/07/22 09:02 Levofloxacin 500 Mg Tablet PO 500 mg DAILY ASHLEY Administration Morphine Sulfate 1 mg 07/06/22 12:57 Morphine Sulfate (*Crx) 2 Mg/Ml Inj IV PUSH Q2H PRN Pain Rated 7-10 Naloxone HCl 0.1 mg 07/06/22 12:57 Naloxone Hcl 0.4 Mg/Ml Vial IV PUSH Q2M PRN Opiate Reversal Labs Labs: Laboratory Results - last 24 hr 07/06/22 07/07/22 07/07/22 21:33 06:13 06:13 Hgb 12.8 L Hct 37.7 L Sodium 136 L Potassium 3.
--- NOTE | 2022-07-07 13:03 | PM.DS ---
DS: Admitting Diagnosis Discharge Date 07/06/2022 Admitting Diagnosis Adenocarcinoma prostate DS: Discharge Diagnosis Discharge Diagnosis (1) Adenocarcinoma of prostate: Code(s): C61 - Malignant neoplasm of prostate Status: Acute DS: Summary Hospital Course Hospital Course: Patient underwent uneventful robotic assisted nerve-sparing prostatectomy with left pelvic lymph node dissection. Patient is ambulating and tolerating a diet. His CARMEN was removed on postoperative day 1. Patient will be discharged home with Roberts catheter. Instructed no heavy lifting for 4-6 weeks. He will follow up with a catheter cystogram in a week's time. His pathology is pending at the time of discharge. Status at Discharge Functional status at discharge: independent ambulation Time Spent with Patient Time attestation: Total time spent providing and/or coordinating discharge services: DS: Data Data Completed and Pending Pending studies at discharge: Pending at discharge 07/06/22 10:05 Surgical [PTH] Routine Surgical [PTH] Routine Labs on day of discharge: Labs from last 24 hours 07/07/22 07/07/22 07/06/22 06:13 06:13 21:33 Hgb 12.8 L Hct 37.7 L Sodium 136 L Potassium 3.8 Chloride 104 Carbon Dioxide 27 Anion Gap 5 L BUN 13 Creatinine 0.80 Estim Creat Clear Calc 76 Estimated GFR > 60 Glucose 91 POC Capillary Glucose 98 Calcium 8.0 L Discharge Plan Discharge Patient Disposition: Home, Self-Care Discharge Instructions: Discharged home with Roberts catheter. Will schedule catheter cystogram in 1 weeks time. Patient Instructions: Roberts Catheter Placement and Care (DC), Urinary Leg Bag (GEN), Robot Assisted Laparoscopic Prostatectomy (DC) Stand Alone Forms: General Discharge Instructions Discharge Medications: New sulfamethoxazole-trimethoprim [Bactrim DS] 800-160 mg tablet 1 tablet PO DAILY Qty: 10 0RF tramadol 50 mg tablet 50 mg PO Q6H PRN (Reason: pain) Qty: 20 0RF Continued atorvastatin 40 mg tablet 40 mg PO DAILY Qty: 90 1RF
--- NOTE | 2022-07-07 15:20 | WPDANESPN ---
Anes - Prog Note Post-Op Date/Time: 07/07/22 15:20 Cardiovascular status: normal Respiratory status: normal Airway patency: baseline Mental status: baseline Post-Op hydration status: normal Vital Signs: Last Vital Signs Temp 36.2 C L 07/07/22 09:49 Pulse 74 07/07/22 09:49 Resp 18 07/07/22 09:49 BP 145/76 H 07/07/22 09:49 Pulse Ox 98 07/07/22 09:49 O2 Del Method Room Air 07/07/22 08:00 O2 Flow Rate 10 07/06/22 11:51 Pain Score (VAS): 06/25 I/O: Intake & Output 07/06/22 07/07/22 07/07/22 23:59 07:59 15:59 Intake Total 1930 275 240 Output Total 835 1250 40 Balance 1095 -975 200 Laboratory Tests 07/07/22 06:13 07/07/22 06:13 07/06/22 07/07/22 07/07/22 21:33 06:13 06:13 Hgb 12.8 L Hct 37.7 L Sodium 136 L Potassium 3.8 Chloride 104 Carbon Dioxide 27 Anion Gap 5 L BUN 13 Creatinine 0.80 Estim Creat Clear Calc 76 Estimated GFR > 60 Glucose 91 POC Capillary Glucose 98 Calcium 8.0 L Post-procedural complaints: none Patient Feedback: Patient satisfied with anesthetic care.
== END 2022-07-07 14:35 | disposition home or self-care (01) ==
LOC: ANHSURGERY 06:36 → ANH3MEDSUR 13:05
PROVIDERS: PCP Family Medicine Adolescent Medicine; Visit Provider Urology
PROC: 0VT04ZZ Resection of Prostate, Percutaneous Endoscopic Approach (ICD-10-PCS; CPT 55867; principal; 2022-07-06 07:30)
DX: C61 Malignant neoplasm of prostate (principal); E78.00 Pure hypercholesterolemia, unspecified
CPT/HCPCS: 55866; 38571; S2900; 36415; 80048; 80053; 82948; 85014; 85018; 85025; 85610; 85730; 86850; 86900; 86901; 87086; 88305; 88309; 93005; A9270; J0690; J1100; J1170; J1885; J2250; J2405; J2704; J2710; J3010; J7030; J7120

== ENCOUNTER 2022-07-14 09:52 | Outpatient (CLI) | payer MEDICARE, SELFPAY ==
--- NOTE | ~2022-07-14 | XR_ITS ---
EXAMINATION: XR cystogram DATE: 07/14/2022 10:36 INDICATION: Prostate cancer status post prostatectomy. TECHNIQUE: Water-soluble contrast was gravity-infused through the patient's Roberts catheter. Multiple fluoroscopic images were obtained. Fluoroscopy exposure time was 0.2 minutes. The total number of fady ges was 8. COMPARISON: None. FINDINGS: There is no extraluminal leakage of contrast. There are a few diverticula of the bladder. N o ureteral reflux. IMPRESSION: 1. No extraluminal leakage of contrast. Reviewed, dictated and finalized at location A.
== END 2022-07-14 09:53 | disposition home or self-care (01) ==
PROVIDERS: PCP Family Medicine Adolescent Medicine; Visit Provider Urology
DX: C61 Malignant neoplasm of prostate (principal)
CPT/HCPCS: 51600; 74430; Q9967

== ENCOUNTER 2022-08-12 07:51 | Outpatient (CLI) | payer MEDICARE, SELFPAY ==
[2022-08-12 08:43] LABS: Prostate Specific Antigen < 0.1 ng/mL (< OR = 4.0)
== END 2022-08-12 07:52 | disposition home or self-care (01) ==
LOC: CHSLAB 07:52
PROVIDERS: PCP Family Medicine Adolescent Medicine; Visit Provider Urology
DX: C61 Malignant neoplasm of prostate (principal)
CPT/HCPCS: 36415; 84153

== ENCOUNTER 2022-11-12 08:01 | Outpatient (CLI) | payer MEDICARE, SELFPAY ==
[2022-11-12 09:13] LABS: Prostate Specific Antigen < 0.1 ng/mL (< OR = 4.0)
== END 2022-11-12 08:02 | disposition home or self-care (01) ==
LOC: CHSLAB 08:03
PROVIDERS: PCP Family Medicine Adolescent Medicine; Visit Provider Urology
DX: C61 Malignant neoplasm of prostate (principal)
CPT/HCPCS: 36415; 84153

== ENCOUNTER 2023-02-14 07:41 | Outpatient (CLI) | payer MEDICARE, SELFPAY ==
[2023-02-14 08:33] LABS: Alanine Aminotransferase 47 U/L (16-63); Albumin Level 3.9 g/dL (3.4-5.0); Alkaline Phosphatase 68 U/L (46-116); Anion Gap 10 mmol/L (8-16); Aspartate Amino Transferase 24 U/L (15-37); Bilirubin,Total 1.1 mg/dL (0.00-1.00); Blood Urea Nitrogen 18 mg/dL (7-18); Calcium 9.2 mg/dL (8.5-10.1); Carbon Dioxide 30 mmol/L (21-32); Chloride 101 mmol/L (98-108); Cholesterol 172 mg/dL (0-200); Estimated Glomerular Filt Rate > 60; Glucose 94 mg/dL (70-99); HDL Direct 56 mg/dL (40-60); LDL Cholesterol Calculated 103 mg/dL (<130); Osmolality Calculated 293 mOsm/kg (285-295); Potassium 3.9 mmol/L (3.5-5.1); Sodium 141 mmol/L (136-145); Total Protein 7.3 g/dL (6.4-8.2); Triglycerides 67 mg/dL (0-150)
[2023-02-14 08:40] LABS: Prostate Specific Antigen < 0.1 ng/mL (< OR = 4.0)
== END 2023-02-14 07:42 | disposition home or self-care (01) ==
LOC: CHSLAB 07:43
PROVIDERS: PCP Family Medicine Adolescent Medicine; Visit Provider Family Medicine Adolescent Medicine
DX: E78.00 Pure hypercholesterolemia, unspecified (principal); C61 Malignant neoplasm of prostate; Z12.5 Encounter for screening for malignant neoplasm of prostate
CPT/HCPCS: 36415; 80053; 80061; 84153; G0103

== ENCOUNTER 2023-05-23 07:37 | Outpatient (CLI) | payer MEDICARE, SELFPAY ==
[2023-05-23 08:32] LABS: Cholesterol 174 mg/dL (0-200); HDL Direct 71 mg/dL (40-60); LDL Cholesterol Calculated 90 mg/dL (<130); Triglycerides 67 mg/dL (0-150)
[2023-05-23 08:33] LABS: Prostate Specific Antigen < 0.1 ng/mL (< OR = 4.0)
== END 2023-05-23 07:38 | disposition home or self-care (01) ==
LOC: CHSLAB 07:39
PROVIDERS: PCP Family Medicine Adolescent Medicine; Visit Provider Family Medicine Adolescent Medicine
DX: E78.00 Pure hypercholesterolemia, unspecified (principal); C61 Malignant neoplasm of prostate
CPT/HCPCS: 36415; 80061; 84153

== ENCOUNTER 2023-11-26 07:26 | Outpatient (CLI) | payer MEDICARE, SELFPAY ==
[2023-11-26 15:05] LABS: Prostate Specific Antigen < 0.1 ng/mL (< OR = 4.0)
== END 2023-11-26 07:27 | disposition home or self-care (01) ==
PROVIDERS: PCP Family Medicine Adolescent Medicine; Visit Provider Urology
DX: C61 Malignant neoplasm of prostate (principal)
CPT/HCPCS: 36415; 84153

== ENCOUNTER 2024-06-02 07:41 | Outpatient (CLI) | payer MEDICARE, SELFPAY ==
--- OUTSIDE RECORDS SUMMARY | 2024-06-02 07:45 | XMS_ITS | Clinical Summary ---
Author Organization [facility] [employer] Address [address] [place] [address] Care Team Providers Care Ripening Room Hand Name Role Phone Unavailable Primary Care Provider Unavailabl e Source Comments [facility] [employer],non-owned Affiliates and Associated Physician Practices is amultiple site organization consisting of ambulatory clinics and hospital sitesin [place], [place], [place] and [place]. This disclosure is being madepursuant to the Care Everywhere program and may not contain all information available regarding this patient. Last updated 18.[employer] Allergies No known active allergies Medications Be aware that medications may not be up to date on this document. Always verify current medications with the patient. No known medications Social History Tobacco Use Types Packs/Day Years Used Date Smoking Tobacco: Never Sex and Gender Information Value Date Recorded Sex Assigned at Not on file Gender Identity Not on file Sexual Orientation Not on file Last Filed Vital Signs Vital Sign Reading Time Taken Comments Blood Pressure 110/68 06/05/2016 12:45 PM DIRECTOR OF MEDICAL SERVICES Pulse 65 06/05/2016 12:45 PM DIRECTOR OF MEDICAL SERVICES Temperature 37.1 C (98.8 F) 06/05/2016 12:45 PM DIRECTOR OF MEDICAL SERVICES Respiratory Rate - - Oxygen Saturation - - Inhaled Oxygen Concentration - - Weight 73.5 kg (162 lb) 06/05/2016 12:45 PM DIRECTOR OF MEDICAL SERVICES Height 175.3 cm (5' 9 ) 06/05/2016 12:45 PM DIRECTOR OF MEDICAL SERVICES Body Mass Index 23.92 06/05/2016 12:45 PM DIRECTOR OF MEDICAL SERVICES Plan of Treatment Health Maintenance Due Date Last Done Comments COLOGUARD (AGES 45-75) - COL ON CA SCREENING 1953 COLON MONITORING 1953 COLONOSCOPY - COLON CA SCREENING 1953 CT COLONOGRAPHY - COLON CA SCREENING 1953 Colorectal Cancer Screening 1953 FIT - COLON CA SCREENING 1953 FLEX SIG - COLON CA SCREENING 1953 LIPID TESTING 1953 HEPATITIS C SCREENING 06/27/1971 DTAP/TDAP/TD VACCINES (1 - Tdap) 1972 PNEUMOCOCCAL VACCINE 50+ (1 of 1 - PCV) 07/02/2003 ZOSTER VACCINE (1 of 2) 07/02/2003 COVID-19 VACCINE (1 - 2023-2 5 season) 2023 INFLUENZA VACCINE (#1) 2023 DEPRESSION SCREENING 04/18/2024 MEDICARE AWV CALENDAR YEAR 2024 Respiratory Syncytial Virus (RSV) Vaccine Pt: or over 60 yrs (1 - 1-dose 75+ series) 2028 HEPATITIS B VACCINE Aged Out No longe r eligible based on patient's age to complete this topic HIB VACCINE Aged Out No longer eligi ble based on patient's age to complete this topic HPV VACCINE Aged Out No longer eligi ble based on patient's age to complete this topic MENINGOCOCCAL (Group B) VACCINE Aged Out No longer eligible based on patient's age to complete this topic MENINGOCOCCAL VACCINE Aged Out No lily trini eligible based on patient's age to complete this topic
--- OUTSIDE RECORDS SUMMARY | 2024-06-02 07:45 | XMS_ITS | Referral Summary ---
Author Organization [facility] [employer] Address [address] [place] [address] Care Team Providers Care On Air Personality Name Role Phone Unavailable Primary Care Provider Unavailabl e Source Comments [facility] [employer],non-owned Affiliates and Associated Physician Practices is amultiple site organization consisting of ambulatory clinics and hospital sitesin [place], [place], [place] and [place]. This disclosure is being madepursuant to the Care Everywhere program and may not contain all information available regarding this patient. Last updated 18.[employer] Allergies No known active allergies Medications Be [...] Comments Blood Pressure 110/68 06/05/2016 12:45 PM OIL ANALYST Pulse 65 06/05/2016 12:45 PM OIL ANALYST Temperature 37.1 C (98.8 F) 06/05/2016 12:45 PM OIL ANALYST Respiratory Rate - - Oxygen Saturation - - Inhaled Oxygen Concentration - - Weight 73.5 kg (162 lb) 06/05/2016 12:45 PM OIL ANALYST Height 175.3 cm (5' 9 ) 06/05/2016 12:45 PM OIL ANALYST Body Mass Index 23.92 06/05/2016 12:45 PM OIL ANALYST Plan of Treatment Not on file
--- OUTSIDE RECORDS SUMMARY | 2024-06-02 07:45 | XMS_ITS | Patient Health Summary ---
Author Organization [facility] [employer] Address [address] [place] [address] Care Team Providers Care Snailer Name Role Phone Unavailable Primary Care Provider Unavailabl e Note from [facility] [employer] [facility] [employer],non-owned Affiliates and Associated Physician Practices is amultiple site organization consisting of ambulatory clinics and hospital sitesin [place], [place], [place] and [place]. This disclosure is being madepursuant to the Care Everywhere program and may not contain all information available regarding this patient. Last updated 18.[facility] [employer] Allergies No known active allergies Medications Be [...] Comments Blood Pressure 110/68 06/05/2016 12:45 PM HEAD SOFT SUGAR OPERATOR Pulse 65 06/05/2016 12:45 PM HEAD SOFT SUGAR OPERATOR Temperature 37.1 C (98.8 F) 06/05/2016 12:45 PM HEAD SOFT SUGAR OPERATOR Respiratory Rate - - Oxygen Saturation - - Inhaled Oxygen Concentration - - Weight 73.5 kg (162 lb) 06/05/2016 12:45 PM HEAD SOFT SUGAR OPERATOR Height 175.3 cm (5' 9 ) 06/05/2016 12:45 PM HEAD SOFT SUGAR OPERATOR Body Mass Index 23.92 06/05/2016 12:45 PM HEAD SOFT SUGAR OPERATOR Procedures * STREP A SCREEN - POINT OF CARE (AMB) STL(Performed 06/05/2016) Performed for Strep pharyngitis Results * (ABNORMAL) STREP A SCREEN (06/05/2016) Strep A Rapid POCT Positive(A) Negative Strep A Internal Control Present Lot # [id number] Expiration Date [id number] Throat ENTIRE THROAT (SURFACE REGION OF NECK) / Unknown 06/05/2016 Daniella Villasenor CAFETERIA SUPERVISOR-[employer]ENSIC [employer]IST[employer] EXPERT LAB - POINT OF CARE ORDERABLES
[2024-06-02 08:31] LABS: Alanine Aminotransferase 38 U/L (16-63); Albumin Level 3.9 g/dL (3.4-5.0); Alkaline Phosphatase 67 U/L (46-116); Anion Gap 8 mmol/L (4-12); Aspartate Amino Transferase 27 U/L (15-37); Bilirubin,Total 1.3 mg/dL (0.00-1.00); Blood Urea Nitrogen 14 mg/dL (7-18); Calcium 9.2 mg/dL (8.5-10.1); Carbon Dioxide 30 mmol/L (21-32); Chloride 104 mmol/L (98-108); Cholesterol 181 mg/dL (0-200); Estimated Glomerular Filt Rate > 60; Glucose 96 mg/dL (70-99); HDL Direct 62 mg/dL (40-60); LDL Cholesterol Calculated 103 mg/dL (<130); Osmolality Calculated 294 mOsm/kg (285-295); Potassium 4.5 mmol/L (3.5-5.1); Sodium 142 mmol/L (136-145); Total Protein 7.2 g/dL (6.4-8.2); Triglycerides 82 mg/dL (0-150)
[2024-06-02 08:53] LABS: Prostate Specific Antigen < 0.1 ng/mL (< OR = 4.0)
== END 2024-06-02 07:42 | disposition home or self-care (01) ==
PROVIDERS: PCP Family Medicine Adolescent Medicine; Visit Provider Family Medicine Adolescent Medicine
DX: C61 Malignant neoplasm of prostate (principal)
CPT/HCPCS: 36415; 80053; 80061; 84153

== ENCOUNTER 2024-12-10 07:22 | Outpatient (CLI) | payer MEDICARE, SELFPAY ==
--- OUTSIDE RECORDS SUMMARY | 2024-12-10 07:27 | XMS_ITS | Clinical Summary ---
Author Organization [facility] Address [address] [place] [address] Care Team Providers Care Prn Occupational Therapist Name Role Phone Unavailable Primary Care Provider Unavailabl e Source Comments [facility],non-owned Affiliates and Associated Physician Practices is amultiple site organization consisting of ambulatory clinics and hospital sitesin [place], [place], [place] and [place]. This disclosure is being madepursuant to the Care Everywhere program and may not contain all information available regarding this patient. Last updated 18.[facility] Allergies No known active allergies Medications * Be aware that medications may not be up to date on this document. Alwaysverify current medications with the patient. No known medications Social History Tobacco Use Types Packs/Day Years Used Date Smoking Tobacco: Never Sex and Gender Information Value Date Recorded Sex Assigned at Not on file Legal Sex Male 10:28 AM FLOOR HAND Gender Identity Not on file Sexual Orientation Not on file Last Filed Vital Signs Vital Sign Reading Time Taken Comments Blood Pressure 110/68 06/05/2016 12:45 PM FLOOR HAND Pulse 65 06/05/2016 12:45 PM FLOOR HAND Temperature 37.1 C (98.8 F) 06/05/2016 12:45 PM FLOOR HAND Respiratory Rate - - Oxygen Saturation - - Inhaled Oxygen Concentration - - Weight 73.5 kg (162 lb) 06/05/2016 12:45 PM FLOOR HAND Height 175.3 cm (5' 9) 06/05/2016 12:45 PM FLOOR HAND Body Mass Index 23.92 06/05/2016 12:45 PM FLOOR HAND Plan of Treatment Health Maintenance Due Date [...] VACCINE (1 - 2023-2 5 season) 2023 DEPRESSION SCREENING 04/18/2024 INFLUENZA VACCINE (#1) 2024 Respiratory Syncytial Virus (RSV) Vaccine Pt: [...] to complete this topic MENINGOCOCCAL (Group B) VACC INE SHARED DECISION-MAKING Aged Out No longer eligibl e based on patient's age to complete this topic MENINGOCOCCAL GROUPS A/C/Y/W VACCINE Aged Out No longer eligible b ased on patient's age to complete this topic Insurance [facility] MANAGED MEDICARE ADV
[2024-12-10 08:49] LABS: Prostate Specific Antigen 0.6 ng/mL (< OR = 4.0)
== END 2024-12-10 07:23 | disposition home or self-care (01) ==
LOC: CHSLAB 07:23
PROVIDERS: PCP Family Medicine Adolescent Medicine; Visit Provider Urology
DX: C61 Malignant neoplasm of prostate (principal)
CPT/HCPCS: 36415; 84153

== ENCOUNTER 2025-01-04 08:37 | Outpatient (CLI) | payer MEDICARE, SELFPAY ==
--- NOTE | ~2025-01-04 | PE_ITS ---
EXAMINATION: PET_PETPSMAST_PT DATE: 01/04/2025 10:45 INDICATION: Prostate cancer. TECHNIQUE: 4.911 mCi of Ga-68 gozetotide was administered intravenously. Low dose computed tomography (CT) images were acquired from the base of the brain to the proximal thighs for attenuation correction and anatomic localization. Automated exposure control was employed. Dose-length product (DLP) was 975 mGy- cm. Positron emission tomography (PET) images were acquired in the same distribution. COMPARISON: None FINDINGS: Head/neck: There are no pathologically enlarged lymph nodes. Chest: There is mild scarring at the lung apices. A calcified right lung nodule and calcified right hilar lymph nodes are consistent with old granulomatous disease. There is no pleural effusion. The heart size is normal. There are coronary artery calcifications. No pericardial effusion. There is a small sliding hiatal hernia. Abdomen/pelvis/proximal thighs: The liver, gallbladder, spleen, pancreas, and adrenal glands are normal. There are cysts in the kidneys measuring up to 2.1 cm on the left. There is no urolithiasis. The prostate is absent. There is diverticulosis of the colon without evidence of diverticulitis. There are no dilated loops of bowel. There are no pathologically enlarged lymph nodes. There is no free intraperitoneal fluid. There is no osseous metastatic disease. IMPRESSION: 1. Prostatectomy. No evidence of malignancy. Reviewed, dictated and finalized at location E.
--- OUTSIDE RECORDS SUMMARY | 2025-01-04 08:41 | XMS_ITS | Clinical Summary ---
Author Organization [facility] Address [address] [place] [address] Care Team Providers Care Screen Cleaner Name Role Phone Unavailable Primary Care Provider Unavailabl e Source Comments [facility],non-owned Affiliates and Associated Physician Practices is amultiple site organization consisting of ambulatory clinics and hospital sitesin [place]. This disclosure is being madepursuant to the Care Everywhere program and may not contain all information available regarding this patient. Last updated 18.[employer] [facility] Allergies No known active allergies Medications * Be aware that medications may not be up to date on this document. Alwaysverify current medications with the patient. No known medications Social History Tobacco Use Types Packs/Day Years Used Date Smoking Tobacco: Never Sex and Gender Information Value Date Recorded Sex Assigned at Not on file Legal Sex Male 10:28 AM TOUR CONDUCTOR Gender Identity Not on file Sexual Orientation Not on file Last Filed Vital Signs Vital Sign Reading Time Taken Comments Blood Pressure 110/68 06/05/2016 12:45 PM TOUR CONDUCTOR Pulse 65 06/05/2016 12:45 PM TOUR CONDUCTOR Temperature 37.1 C (98.8 F) 06/05/2016 12:45 PM TOUR CONDUCTOR Respiratory Rate - - Oxygen Saturation - - Inhaled Oxygen Concentration - - Weight 73.5 kg (162 lb) 06/05/2016 12:45 PM TOUR CONDUCTOR Height 175.3 cm (5' 9) 06/05/2016 12:45 PM TOUR CONDUCTOR Body Mass Index 23.92 06/05/2016 12:45 PM TOUR CONDUCTOR Plan of Treatment Health Maintenance Due Date [...] 07/02/2003 ZOSTER VACCINE (1 of 2) 07/02/2003 DEPRESSION SCREENING 04/18/2024 COVID-19 VACCINE (1 - 2023-2 5 season) 2024 INFLUENZA VACCINE (#1) 2024 Respiratory Syncytial Virus [...] patient's age [place] [id number] [facility] [place] [address]
== END 2025-01-04 08:38 | disposition home or self-care (01) ==
PROVIDERS: PCP Family Medicine Adolescent Medicine; Visit Provider Urology
DX: C61 Malignant neoplasm of prostate (principal); Z90.79 Acquired absence of other genital organ(s)
CPT/HCPCS: 78815; A9596

== ENCOUNTER 2025-03-21 07:32 | Outpatient (CLI) | payer MEDICARE, SELFPAY ==
--- OUTSIDE RECORDS SUMMARY | 2025-03-21 07:35 | XMS_ITS | Clinical Summary ---
Author Organization [facility] Address [address] [place] [address] Care Team Providers Care Program Medical Director Name Role Phone Unavailable Primary Care Provider Unavailabl e Source Comments [facility],non-owned Affiliates and Associated Physician Practices is amultiple site organization consisting of ambulatory clinics and hospital sitesin [place], [place], [place] and [place]. This disclosure is being madepursuant to the Care Everywhere program and may not contain all information available regarding this patient. Last updated 01/06/[employer] [facility] Allergies No known active allergies Medications * Be aware that medications may not be up to date on this document. Alwaysverify current medications with the patient. No known medications Social History Tobacco Use Types Packs/Day Years Used Date Smoking Tobacco: Never Sex and Gender Information Value Date Recorded Sex Assigned at Not on file Legal Sex Male 10:28 AM VINYL HANGER Gender Identity Not on file Sexual Orientation Not on file Last Filed Vital Signs Vital Sign Reading Time Taken Comments Blood Pressure 110/68 06/05/2016 12:45 PM VINYL HANGER Pulse 65 06/05/2016 12:45 PM VINYL HANGER Temperature 37.1 C (98.8 F) 06/05/2016 12:45 PM VINYL HANGER Respiratory Rate - - Oxygen Saturation - - Inhaled Oxygen Concentration - - Weight 73.5 kg (162 lb) 06/05/2016 12:45 PM VINYL HANGER Height 175.3 cm (5' 9) 06/05/2016 12:45 PM VINYL HANGER Body Mass Index 23.92 06/05/2016 12:45 PM VINYL HANGER Plan of Treatment Health Maintenance Due Date [...] DEPRESSION SCREENING 04/18/2024 COVID-19 VACCINE (1 - 2024-2 6 season) 2024 INFLUENZA VACCINE (#1) 2024 Respiratory [...] patient's age to complete this topic Insurance [facility] MANAGED MEDICARE ADV
[2025-03-21 09:08] LABS: Prostate Specific Antigen 0.2 ng/mL (< OR = 4.0)
[2025-03-21 10:09] LABS: Alanine Aminotransferase 39 U/L (6-50); Albumin Level 4.7 g/dL (3.5-5.1); Alkaline Phosphatase 55 U/L (38-126); Anion Gap 9 mmol/L (4-12); Aspartate Amino Transferase 39 U/L (17-59); Bilirubin,Total 0.8 mg/dL (0.2-1.3); Blood Urea Nitrogen 15 mg/dL (9-20); Calcium 9.6 mg/dL (8.4-10.2); Carbon Dioxide 27 mmol/L (22-30); Chloride 106 mmol/L (98-107); Cholesterol 192 mg/dL (0-200); Estimated Glomerular Filt Rate > 60; Glucose 92 mg/dL (65-110); HDL Direct 63 mg/dL; Osmolality Calculated 294 mOsm/kg (285-295); Potassium 4.5 mmol/L (3.4-5.0); Sodium 142 mmol/L (137-145); Total Protein 7.5 g/dL (6.3-8.2); Triglycerides 105 mg/dL (<150)
== END 2025-03-21 07:33 | disposition home or self-care (01) ==
LOC: CHSLAB 07:33
PROVIDERS: PCP Family Medicine Adolescent Medicine; Visit Provider Nurse Practitioner
DX: E78.00 Pure hypercholesterolemia, unspecified (principal); C61 Malignant neoplasm of prostate
CPT/HCPCS: 36415; 80053; 80061; 84153